=== PATIENT | male | born 2005 | race Two or more races ===

== ENCOUNTER 2024-11-11 23:52 | Emergency (ER) | payer OTHER ==
[~2024-11-11] VITALS: Ht 172.7 cm; Wt 93.1 kg
[2024-11-12 00:08] VITALS: BP 137/66; PULSE 79; RESP 20; O2SAT 100
== END 2024-11-12 02:46 | disposition left against medical advice (07) ==
LOC: ER 23:52
DX: M54.59 Other low back pain (principal); Z53.21 Procedure and treatment not carried out due to patient leaving prior to being seen by health care provider